=== PATIENT | female | born 1985 | race Caucasian/White ===

== ENCOUNTER 2023-01-12 13:47 | Outpatient (CLI) | payer BC, SELFPAY | END 2023-01-12 13:48 | disposition home or self-care (01) | PROVIDERS: PCP Family Medicine; Visit Provider Registered Nurse | DX: Z01.419 Encounter for gynecological examination (general) (routine) without abnormal findings (principal); N92.0 Excessive and frequent menstruation with regular cycle; R63.5 Abnormal weight gain | CPT/HCPCS: 84443 ==

== ENCOUNTER 2023-05-22 08:21 | Outpatient (CLI) | payer BC, SELFPAY ==
--- NOTE | 2023-05-22 08:30 | CRLHL7_ITS ---
For Patients: As a result of the Century Cures Act, medical imaging exams and procedure reports are released immediately into your electronic medical record. You may view this report before your referring provider. If you have questions, please contact your health care provider. INDICATION: menorrhagia COMPARISON: none TECHNIQUE: 2D flowers scale and color Doppler images were acquired of the pelvis using a transabdominal and transvaginal approach. FINDINGS: Sonographic images demonstrate a normal size and smooth outer contour of the uterus. Uterus measures 9.5 cm in length by 4.8 cm in AP diameter by 5.3 cm in transverse dimension. The myometrium has a normal uniform echotexture. The endometrial lining measures 8 mm in composite thickness. The right ovary measures 3.7 x 1.7 x 1.4 cm in size and the left ovary measures 3.4 x 1.6 x 2.3 cm. The ovaries demonstrate normal arterial and venous blood flow on color Doppler analysis. Simple right paraovarian cyst is incidentally noted measuring 1.7 x 1.3 x 1.6 cm. There are no suspicious fluid collections within the cul-de-sac. IMPRESSION: Endometrial thickness 8 millimeters. No endometrial fluid. No uterine fibroid. Dictated by Lc Calvert MD @ 05/22/2023 10:50:58 AM (Electronically Signed)
--- NOTE | 2023-05-22 09:15 | CRLHL7_ITS ---
For Patients: As a result of the Century Cures Act, medical imaging exams and procedure reports are released immediately into your electronic medical record. You may view this report before your referring provider. If you have questions, please contact your health care provider. BILATERAL SCREENING MAMMOGRAM WITH COMPUTER-AIDED DETECTION TECHNIQUE: CC and MLO views were obtained. These mammographic images have been obtained using full-field digital technique. These mammographic images were interpreted with the benefit of computer-aided detection. COMPARISON FILM: 10/31/21. FINDINGS: There are scattered areas of fibroglandular density IMPRESSION: There is no radiographic evidence for malignancy. ASSESSMENT: BI-RADS Category 1: Negative RECOMMENDATION: Routine screening mammogram in 1 year. A lay language report of this examination will be provided to the patient. Lc Calvert M.D. Diagnostic Radiologist [email or web address] Transcribed: 2:27 p.mYolette carolina/Dictated by: Lc Calvert MD @ 05/22/2023 10:40:00 AM (Electronically Signed)
== END 2023-05-22 08:22 | disposition home or self-care (01) ==
LOC: US 08:22
PROVIDERS: PCP Family Medicine; Visit Provider Registered Nurse
DX: Z12.31 Encounter for screening mammogram for malignant neoplasm of breast (principal); N92.0 Excessive and frequent menstruation with regular cycle; R93.89 Abnormal findings on diagnostic imaging of other specified body structures
CPT/HCPCS: 76830; 76856; 77067

== ENCOUNTER 2024-08-26 16:55 | Outpatient (CLI) | payer BC, SELFPAY ==
--- OUTSIDE RECORDS SUMMARY | 2024-08-26 16:57 | XMS_ITS | Clinical Summary ---
Author Organization [email or web address] Address [place], [place] [address] Care Team Providers Care Chip Unloader Name Role Phone Kiera Freire MD Primary Care Prov ider Allergies No known active allergies Medications Medication Sig Dispensed Refills Start Date End Date Status VITAMIN TAB take 1 tablet by oral route once daily 0 07/22/2009 Active Active Problems No known active problems Social History Tobacco Use Types Packs/Day Years Used Date Smoking Tobacco: Never Smokeless Tobacco: Never Alcohol Use Standard Drinks/Week Comments Not Asked 0 (1 standard drink = 0.6 oz pur e alcohol) Sex and Gender Information Value Date Recorded Sex Assigned at Not on file Gender Identity Not on file Sexual Orientation Not on file Obstetrics History Last Filed Vital Signs Vital Sign Reading Time Taken Comments Blood Pressure 102/71 06/12/2012 7:51 PM CDT Pulse 86 06/12/2012 7:51 PM CDT Temperature 36.7 ??C (98.1 ??F) 06/12/2012 7:51 PM CD T Respiratory Rate - - Oxygen Saturation - - Inhaled Oxygen Concentration - - Weight 71.4 kg (157 lb 8 oz) 06/12/2012 7:51 PM CDT Height - - Body Mass Index - - Plan of Treatment Health Maintenance Due Date Last Done Comments Tdap 1994 Depression screening for age 12+ 1995 HIV for age 15-65 1998 BMI (ht and wt on same day) for age 18+ 2001 Hepatitis C screening for ag e 18-79 2001 Tetanus booster 2003 Pap test for age 21-65 02/24/2004 COVID-19 vaccine series (2023- season) 2024 Influenza for age 9-49 06/22/2024 Pneumococcal series for age 6-64 Aged Out No longer eligible based on patient's age to complete this topic Care Teams Chip Unloader Relationship Specialty Start Date End Date Kiera Freire MD PCP - General 07/22/09
--- NOTE | 2024-08-26 17:00 | CRLHL7_ITS ---
For Patients: As a result of the Century Cures Act, medical imaging exams and procedure reports are released immediately into your electronic medical record. You may view this report before your referring provider. If you have questions, please contact your health care provider. BILATERAL SCREENING MAMMOGRAM WITH COMPUTER-AIDED DETECTION AND TOMOSYNTHESIS TECHNIQUE: CC and MLO views were obtained. These mammographic images have been obtained using full-field digital technique. These mammographic images were interpreted with the benefit of computer-aided detection. Breast tomosynthesis was used in this interpretation. COMPARISON FILM: 05/22/23. FINDINGS: There are scattered areas of fibroglandular density. IMPRESSION: There is no radiographic evidence for malignancy. ASSESSMENT: BI-RADS Category 2: Benign RECOMMENDATION: Routine screening mammogram in 1 year. A lay language report of this examination will be provided to the patient. LC TRACY M.D. Diagnostic Radiologist [email or web address] Transcribed: 1:[address]/Dictated by: Lc Tracy MD @ 09/01/2024 11:29:00 AM (Electronically Signed)
== END 2024-08-26 16:56 | disposition home or self-care (01) ==
PROVIDERS: PCP Family Medicine; Visit Provider Family Medicine
DX: Z12.31 Encounter for screening mammogram for malignant neoplasm of breast (principal)
CPT/HCPCS: 77063; 77067

== ENCOUNTER 2025-02-09 08:50 | Outpatient (CLI) | payer BC, SELFPAY | END 2025-02-09 08:51 | disposition home or self-care (01) | LOC: NFLDREF 02-11 02:53 | PROVIDERS: PCP Family Medicine; Referring Provider Family Medicine; Visit Provider Family Medicine | DX: Z13.6 Encounter for screening for cardiovascular disorders (principal); Z13.1 Encounter for screening for diabetes mellitus | CPT/HCPCS: 80061; 82947 ==